=== PATIENT | male | born 1955 | race Caucasian/White ===

== ENCOUNTER 2021-03-21 12:02 | Inpatient (IN) | payer BC, MEDICARE, SELFPAY ==
[2021-03-21] VITALS (9 sets, daily range): BP systolic 122–135; BP diastolic 73–90; PULSE 62–83; RESP 16–19; TEMP 35.7–36.9; O2SAT 97–100; BMI 21.2
--- NOTE | ~2021-03-21 | XR_ITS ---
EXAMINATION: XR chest 2V DATE: 03/27/2021 09:38 INDICATION: Cough. TECHNIQUE: Frontal and lateral views of the chest were obtained. COMPARISON: Chest 2 views 03/25/2021, chest CT 03/21/2021 FINDINGS: There is a diffuse interstitial pattern in the lungs, consistent with pulmonary edema. Ther e are small pleural effusions. No pneumothorax. The heart size is normal. IMPRESSION: 1. Mild pulmonary edema. 2. Small pleural effusions. Reviewed, dictated and finalized at location A. RSONATOR CHARACTER
--- NOTE | ~2021-03-21 | XR_ITS ---
EXAMINATION: XR chest 1V portable DATE: 03/23/2021 10:25 INDICATION: Shortness of breath. TECHNIQUE: A single frontal view of the chest was obtained on 2 radiographs. COMPARISON: Chest 2 views 03/21/2021, chest CT 03/21/2021 FINDINGS: There are interstitial opacities and airspace opacities involving all lung zones bilaterall y. No pleural effusion or pneumothorax. The heart size is normal. IMPRESSION: 1. Diffuse lung disease, worsened from 03/21/2021, consistent with moderate pulmonary edema. Reviewed, dictated and finalized at location A. H CUTTER IMPRESSION: 1. Diffuse lung disease, worsened from 03/21/2021, consistent with moderate pul monary edema.
--- NOTE | ~2021-03-21 | XR_ITS ---
XR chest 2V DATE: 03/25/2021 06:36 INDICATION: Hemoptysis for 2 days. Shortness of breath. TECHNIQUE: PA and lateral views COMPARISON: 03/23/2021 portable AP chest FINDINGS: Heart size appears normal. There is extensive pulmonary interstitial infiltrate throughout the lungs. There are bilateral Narciso B-lines. The fissures are prominent. The findings are consisten t with diffuse pulmonary interstitial edema in addition to subpleural edema. There are small pleural effusions. Bibasilar infiltrate or atelectasis. There is aortic arch calcification. Barium contrast material is noted in the splenic flexure of the colon. Glenohumeral osteoarthritis is noted bilaterally. IMPRESSION: Pulmonary interstitial and subpleural edema, mildly improved since 03/23/2021 Reviewed, dictated and finalized at location A. INE LAY OUT WORKER
--- NOTE | ~2021-03-21 | XR_ITS ---
EXAMINATION: XR chest 2V DATE: 03/21/2021 12:40 INDICATION: Epigastric abdominal pain. Shortness of breath. TECHNIQUE: Frontal and lateral views of the chest were obtained. COMPARISON: Chest 2 views 05/12/2016 FINDINGS: There is a diffuse interstitial pattern, consistent with mild pulmonary edema. No pleural e ffusion or pneumothorax. The heart size is normal. IMPRESSION: 1. Mild pulmonary edema. Reviewed, dictated and finalized at location A. EGNATOR IMPRESSION: 1. Mild pulmonary edema.
--- NOTE | ~2021-03-21 | XR_ITS ---
EXAMINATION: XR esophogram water soluble DATE: 03/21/2021 14:37 BEE TENDER INDICATION: Difficulty swallowing. History of tonsillar cancer. TECHNIQUE: Water-soluble contrast was administered orally. Fluoroscopic images of the esophagus were obtained in various projections. The hypopharynx was also examined. Thereafter, overhead images of th e thoracic esophagrus were performed. Fluroscopy time 0.6 minutesDap 10.5 FINDINGS: The esophagus is normal in caliber, without mucosal lesions or strictures. There is normal esophageal peristalsis. There is a small hiatal hernia. Gastroesophageal reflux is identified. IMPRESSION: 1. Small sliding hiatal hernia with gastroesophageal reflux. No strictures or obstruction to flow of contrast into the stomach. Reviewed, dictated and finalized at location A. TENDER
--- NOTE | ~2021-03-21 | CT_ITS ---
EXAMINATION: CT soft tiss nk chst ab pel w DATE: 03/21/2021 14:21 INDICATION: Dysphagia. Right chest pain. Nausea and vomiting. TECHNIQUE: Computed tomography (CT) of the neck, chest, abdomen, and pelvis was performed with 100 mL Omnipaque 350 intravenous contrast. Automated exposure control and iterative reconstruction techniqu e were employed. The dose-length product was 922.53 mGy-cm. COMPARISON: None FINDINGS: NECK CT: There is fat stranding in the neck, consistent with changes of radiation therapy. There are no pathol ogically enlarged lymph nodes. There is mild plaque in the proximal internal carotid arteries with 0% stenosis relative to normal artery lumen diameters. There is no abscess. The epiglottis is normal. T here is moderate cervical spondylosis. CHEST CT: There is widespread smooth septal thickening in the lungs with groundglass opacities, likely pulmonar y edema. No pleural effusion. The heart size is normal. There are coronary artery calcifications. No pericardial effusion. There is severe thoracic spondylosis. ABDOMEN/PELVIS CT: There is hepatosplenomegaly. The spleen measures 14.4 cm. The gallbladder, pancreas, and right adrena l gland are normal. There is a 4.0 cm mass of left adrenal gland with surrounding fat stranding. Ther e are cysts in the kidneys measuring up to 2.7 cm on the left. There is diverticulosis of the colon w ithout evidence of diverticulitis. There are no dilated loops of bowel. The appendix is not visualize d. There is a small sliding hiatal hernia. There are no pathologically enlarged lymph nodes. There is no free intraperitoneal fluid. There is calcified atherosclerosis of the aorta and many of the other arteries. There is moderate stenosis of the renal arteries, celiac axis, superior mesenteric artery. There is severe stenosis of left internal iliac artery and moderate stenosis of right internal iliac artery. There is severe lumbar spondylosis. IMPRESSION: 1. Diffuse lung disease, likely mild pulmonary edema. 2. Hepatosplenomegaly. 3. 4.0 cm mass of left adrenal gland with surrounding fat stranding, most likely recent adrenal hemor rhage. 4. Arterial occlusive disease. Reviewed, dictated and finalized at location A. ATTENDANT IMPRESSION: 1. Diffuse lung disease, likely mild pulmonary edema. 2. Hepatosplenomegaly. 3. 4.0 cm mass of left adrenal gland with surrounding fat stranding, most likel y recent adrenal hemorrhage. 4. Arterial occlusive disease.
--- NOTE | 2021-03-21 12:17 | ECG_ITS ---
Measurements Intervals [place] Rate: 74 P: 60 [place]: 154 QRS: 2 QRSD: 100 T: 85 QT: 388 QTc: 431 Interpretive Statements SINUS RHYTHM POSSIBLE LEFT ATRIAL ENLARGEMENT CANNOT RULE OUT SEPTAL INFARCT, AGE INDETERMINATE BORDERLINE ST-T WAVE ABNORMALITY- ANTEROLAT/HIGH LAT LEADS BASELINE ARTIFACT- I, III, AVR, AVL, AVF, V4-V5 ABNORMAL ECG Electronically Signed On 03-21-2021 15:26:33 ECONOMIC ADVISER by Brian Ibarra D.O.
[2021-03-21 12:35] LABS: Hemoglobin 14.3 g/dL (14.0-18.0); Immature Platelet Fraction Pct 24.9 % (0.9-11.2); Mean Corpuscular HGB Conc 32.5 g/dl (32-36); Mean Corpuscular Hemoglobin 34.1 pg (26-34); Platelet Count Result 61 k/mm3 (150-375); Red Blood Count 4.19 M/mm3 (4.6-6.20); Red Cell Distribution Width 22.8 % (11.5-14.5)
[2021-03-21 12:47] LABS: Partial Thromboplastin Time 23.9 SECONDS (22.3-36.8); Prothrombin Time 12.7 Seconds (11.1-14.7)
[2021-03-21 12:48] LABS: Anion Gap 10 mmol/L (8-16); Blood Urea Nitrogen 19 mg/dL (9-20); Calcium 8.9 mg/dL (8.4-10.2); Carbon Dioxide 22 mmol/L (22-30); Chloride 103 mmol/L (98-107); Estimated CRCL calculation 62 ml/min; Estimated Glomerular Filt Rate > 60; Glucose 100 mg/dL (65-110); Potassium 4.7 mmol/L (3.4-5.0); Sodium 135 mmol/L (137-145)
[2021-03-21 12:53] LABS: White Blood Count 119.4 K/mm3 (4.5-10.0)
[2021-03-21 13:15] LABS: Troponin I 0.721 ng/mL (0.000-0.034)
[2021-03-21 13:19] LABS: Band Neutrophils Percent 5 % (0-6); Eosinophils Absolute Manual 1.19 K/mm3 (0.02-0.5); Eosinophils Percent Manual 1 % (0-4); Lymphocytes Absolute Manual 4.77 K/mm3 (1.1-4.5); Metamyelocytes Percent 4 %; Monocytes Absolute Manual 7.16 K/mm3 (0.1-0.90); Monocytes Percent Manual 6 % (3-9); Myelocytes Percent 2 %; Neutrophils Absolute Manual 95.52 K/mm3 (1.3-6.7); Neutrophils Percent Manual 75 % (46-73); Platelet Estimate Decreased (Adequate); Promyelocytes Percent 3 %; Total Cells Counted 100
[2021-03-21 13:20] LABS: Large Platelets Present; Polychromasia 2+ (NORMAL)
--- NOTE | 2021-03-21 13:23 | ED.GENADULT ---
HPI - General Adult General Chief complaint: Skin/Abscess/Foreign Body Stated complaint: GI, esophageal tightness Time Seen by Provider: 03/21/21 13:22 Source: patient Mode of arrival: ambulatory Limitations: no limitations History of Present Illness HPI narrative: Patient is 65 years old white male presented to the ED with difficulty swallowing started 4 days ago, and gradually getting worse. Patient reports severe central chest pain radiating to right upper extremity immediately after eating anything. Patient feels the food does not go down. Patient vomited once today. Last meal was last night. Patient was seen at [facility] 2 days ago for the above symptoms, cardiac work-up plus chest x-ray plus CT scan of the chest showed no acute abnormalities and patient was discharged. Patient went see his family physician today who referred him to the emergency room for further evaluation history of right tonsillar cancer 2 years ago, status post radiation therapy and chemotherapy. Patient reports history of bone marrow disorder since 38 years old. Patient reports burping make the symptoms gets better Related Data Home Medications Medication Instructions Recorded Confirmed danazol 200 mg capsule 200 mg PO BID 05/23/20 12/11/20 ferrous sulfate 325 mg (65 mg 325 mg PO TID 05/23/20 12/11/20 iron) tablet levothyroxine 112 mcg tablet 112 mcg PO DAILY 05/23/20 12/11/20 uyngsjsfmybq-kmvutmrh-gktjrh tablet 1 tablet PO DAILY 05/23/20 12/11/20 ruxolitinib 5 mg tablet 5 mg PO BID 05/23/20 12/11/20 aspirin 81 mg tablet,delayed 81 mg PO DAILY 10/17/20 12/11/20 release ticagrelor 60 mg tablet 60 mg PO Q12H 10/17/20 12/11/20 atorvastatin 40 mg tablet 40 mg PO DAILY 10/25/20 12/11/20 Allergies Allergy/AdvReac Type Severity Reaction Status Date / Time bee venom protein (honey bee) Allergy Unknown Unknown Verified 03/21/21 11:25 poison lashae extract Allergy Unknown rash Verified 03/21/21 11:25 Review of Systems Review of Systems: CONSTITUTIONAL: Denies fever, chills, or sweats. EYES: Denies visual changes, redness, or discharge. ENT: Denies rhinorrhea, congestion, sore throat, or otalgia. CARDIOVASCULAR: Denies chest pain, palpitations, or edema. RESPIRATORY: Denies cough or dyspnea. GASTROINTESTINAL: Denies abdominal pain, nausea, vomiting, or diarrhea. GENITOURINARY: Denies dysuria or hematuria. SKIN: Denies rash or itching. MUSCULOSKELETAL: Denies back pain, joint pain, or myalgia. NEUROLOGIC: Denies headache, numbness, or weakness. PSYCHIATRIC: Denies anxiety or depression. 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 with myeloid hyperplasia History of bone marrow biopsy (~04/25/13) hypercellular bone marrow with maturing trilinage hematopoiesis and myeloid and megakaryocytic hyperplasia History of Mohs surgery for squamous cell carcinoma of skin (~12/01/18) right denominational History of tonsillectomy (~1958) Post PTCA Family History Family History Mother Patient's mother is Family history of arthritis Father Family history of irritable bowel syndrome Social History Social History Alcohol intake: current Exam Narrative: General appearance: Well-developed, malnourished Skin: Normal color Head: Normocephalic, nontraumatic Eyes: Clear conjunctiva ENT: Oropharynx normal, ears normal, nose normal Neck: Supple, nontender Chest and respiratory: Airway patent, no respiratory distress, no accessor
--- NOTE | 2021-03-21 13:30 | PC.NURSE ---
Dr. Cobb ordered to not give asprin
--- NOTE | 2021-03-21 13:55 | PC.NURSE ---
Awaiting CT scan pt updated
[2021-03-21 14:00] LABS: Alanine Aminotransferase 32 U/L (4-50); Albumin Level 3.9 g/dL (3.5-5.1); Alkaline Phosphatase 84 U/L (38-126); Aspartate Amino Transferase 35 U/L (17-59); Bilirubin,Total 0.6 mg/dL (0.2-1.3)
--- NOTE | 2021-03-21 16:00 | PC.NURSE ---
Patient resting quietly
[2021-03-21 16:07] LABS: Troponin I 0.843 ng/mL (0.000-0.034)
[2021-03-21] MEDS: METOPROLOL TARTRATE 25 MG TABLET PO (16:31)
[2021-03-21] MEDS: ASPIRIN 81 MG CHEWABLE TABLET 324 MG PO (16:31)
--- NOTE | 2021-03-21 17:22 | PC.NURSE ---
Attempting to call report no answer after being on hold
--- NOTE | 2021-03-21 18:37 | PC.NURSE ---
Gave report to Vivian TORRES no further questions or concerns
--- NOTE | 2021-03-21 18:58 | ADMGEN ---
This patient, Mikael Hernandez, was admitted to IMU Room 205-02 at 1856 on 03/21/2021. Patient/family oriented to hospital policies and general routines including ID bracelet, bed and alarms, visiting hours, pain management, procedures, bathroom and other care routines, personal items, smoking policy, room service/diet, and visiting hours. Information on how to activate the Rapid Response Team has been discussed. Patient/Family are encouraged to report perceived risks to care and to ask questions if they do not understand what they are told or what they should do.
--- NOTE | 2021-03-21 20:00 | PM.IMHP ---
H&P: HPI History of Present Illness Date/Time: 03/21/21 20:00 Chief Complaint: Chest pain. 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 Patient presented today to the emergency room after he was advised by his primary care physician where he was visiting in due to retrosternal chest pain with radiation to the right shoulder after eating meals has not been able to eat anything in in the last couple of days pain is alleviated when the patient changes positions like leaning forward and burping, when he lays flat the pain gets exacerbated he has bouts of dry cough with it and shortness of breath, no sputum production, no palpitation, no dizziness no lightheadedness no syncope or near syncope, has sensation on something stuck in the middle of his chest after he swallows, patient had some nausea and vomiting the day before where he vomited foot particles undigested from the day before with his medications that he took in the morning triggering this episode, patient denies any fevers, rigors or chills. Preliminary workup was significant for esophagogram esophagus is normal in caliber, without mucosal lesions or strictures,there is normal esophageal peristalsis,there is a small hiatal hernia,gastroesophageal reflux is identified, WBC was significant for a leukocyte count of 119,000, a CT of neck chest abdominal pelvis was significant for hepatosplenomegaly. Patient has been admitted for further evaluation, management ,treatment and assessment. Review of Systems Review of Systems: Retrosternal chest pain with meals, nausea ,vomiting ,dysphagia. Constitutional: Constitutional: Denies chills, Denies fatigue, Denies fever(s), Denies malaise, Denies poor appetite and Denies weakness Eyes: Eyes: Denies change in vision ENT: Reports dysphagia, Denies vertigo, Denies dizziness, Denies nasal congestion, Denies nasal discharge, Denies nasal obstruction and Denies odynophagia Cardiovascular: Cardiovascular: Reports chest pain, Denies chest pain with activity, Denies rapid heart rate, Denies irregular heart rhythm, Denies claudication, Denies lightheadedness, Denies radiating jaw, neck or arm pain, Denies palpitations, Denies dyspnea, Denies dyspnea on exertion and Denies orthopnea Respiratory: Respiratory: Reports cough and Reports dyspnea Comments: After meals Gastrointestinal: Gastrointestinal: Reports abdominal pain, Reports belching, Denies melena, Denies hematochezia, Denies coffee ground emesis, Reports dyspepsia, Reports heartburn, Reports nausea and Reports vomiting Genitourinary: Genitourinary: Reports no additional male genitourinary complaints and Reports as per HPI Musculoskeletal: Musculoskeletal: Reports no additional musculoskeletal complaints and Reports as per HPI Integumentary/Breasts: Skin/Breast: Denies rash and Denies skin ulcer Comments: Squamous cell carcinoma and basal cell carcinoma Neurologic: Denies vertigo, Denies dizziness, Denies focal weakness and Denies Sensory deficit (Neuro) Endocrine: Endocrine: Reports no additional endocrine complaints and Reports as per HPI Hematologic/Lymphatic: Hematologic/Lymphatic: Reports no additional hematologic/lymphatic complaints and Reports as per HPI Allergic/Immunologic: Allergic/Immunologic: Reports no additional allergic/immunologic complaints and Reports as per HPI PMF Past Medical History Medical History (Updated 03/22/21 @ 00:45 by Margaret Renner MD) Atrial fibrillation 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
[2021-03-21 20:58] LABS: Troponin I 0.975 ng/mL (0.000-0.034)
[2021-03-21] MEDS: AMIODARONE HCL 200 MG TABLET PO (22:45)
[2021-03-21] MEDS: TICAGRELOR 60 MG TABLET PO (22:45)
--- NOTE | 2021-03-21 23:05 | PC.NURSE ---
This patient, Mikael Hernandez, was admitted to IMU Room 205-02. Patient/family oriented to hospital policies and general routines including ID bracelet, bed and alarms, visiting hours, pain management, procedures, bathroom and other care routines, personal items, smoking policy, room service/diet, and visiting hours. Patient/Family are encouraged to report perceived risks to care and to ask questions if they do not understand what they are told or what they should do.
[2021-03-22] VITALS (12 sets, daily range): BP systolic 105–121; BP diastolic 68–80; PULSE 67–85; RESP 16–22; TEMP 35.2–37.1; O2SAT 97–100
[2021-03-22] MEDS: HYDROmorphone HCL INJ (*CRX) 1 MG/ML SYR IV PUSH ×4 (04:28→21:33)
[2021-03-22] MEDS: PANTOPRAZOLE SODIUM IV 40 MG VIAL IV PUSH ×3 (04:29→20:36)
[2021-03-22 05:36] LABS: Hematocrit 42.3 % (42.0-52.0); Hemoglobin 14.1 g/dL (14.0-18.0); Immature Platelet Fraction Pct 23.6 % (0.9-11.2); Mean Corpuscular HGB Conc 33.3 g/dl (32-36); Mean Corpuscular Hemoglobin 34.9 pg (26-34); Mean Corpuscular Volume 104.7 fl (80-100); Platelet Count Result 54 k/mm3 (150-375); Red Blood Count 4.04 M/mm3 (4.6-6.20); Red Cell Distribution Width 22.2 % (11.5-14.5)
[2021-03-22 05:45] LABS: Alanine Aminotransferase 31 U/L (4-50); Albumin Level 3.6 g/dL (3.5-5.1); Alkaline Phosphatase 73 U/L (38-126); Anion Gap 9 mmol/L (8-16); Aspartate Amino Transferase 32 U/L (17-59); Bilirubin,Total 0.6 mg/dL (0.2-1.3); Blood Urea Nitrogen 20 mg/dL (9-20); Calcium 8.5 mg/dL (8.4-10.2); Carbon Dioxide 20 mmol/L (22-30); Chloride 104 mmol/L (98-107); Estimated CRCL calculation 59 ml/min; Estimated Glomerular Filt Rate > 60; Glucose 83 mg/dL (65-110); Potassium 4.6 mmol/L (3.4-5.0); Sodium 133 mmol/L (137-145)
--- NOTE | 2021-03-22 06:00 | ECG_ITS ---
Measurements Intervals [place] Rate: 69 P: 36 [place]: 161 QRS: -17 QRSD: 106 T: 87 QT: 412 QTc: 442 Interpretive Statements SINUS RHYTHM POSSIBLE LEFT ATRIAL ENLARGEMENT CANNOT RULE OUT SEPTAL INFARCT, AGE INDETERMINATE CONSIDER INFERIOR INFARCT, AGE INDETERMINATE ST-T WAVE ABNORMALITY IN HIGH LATERAL LEADS- CONSIDER ISCHEMIA ABNORMAL ECG Electronically Signed On 03-22-2021 8:03:03 REFINISHER by Brian Ibarra D.O.
[2021-03-22] MEDS: LEVOTHYROXINE SODIUM 75 MCG TABLET PO (06:37)
[2021-03-22] MEDS: BELLADONNA ALK/PHENOB ELIX 10 ML, MAG HYDROX/ALUMINUM HYD/SIMETH 30 ML, LIDOCAINE HCL 2... PO ×2 (06:37→12:42)
[2021-03-22] MEDS: LEVOTHYROXINE SODIUM 100 MCG TABLET PO (06:37)
[2021-03-22 06:40] LABS: White Blood Count 116.7 K/mm3 (4.5-10.0)
[2021-03-22 07:42] LABS: Band Neutrophils Percent 8 % (0-6); Blastocytes 1 %; Metamyelocytes Percent 7 %; Monocytes Absolute Manual 1.16 K/mm3 (0.1-0.90); Monocytes Percent Manual 1 % (3-9); Myelocytes Percent 5 %; Neutrophils Absolute Manual 75.85 K/mm3 (1.3-6.7); Neutrophils Percent Manual 57 % (46-73); Platelet Estimate Decreased (Adequate); Promyelocytes Percent 3 %; Total Cells Counted 100
[2021-03-22 07:43] LABS: Atypical Lymphocytes Present
--- NOTE | 2021-03-22 10:10 | PM.CNCAR ---
Assessment and Plan Additional Plan 65-year-old man who has a history of atrial fibrillation coronary artery disease with previous percutaneous revascularization in July in August of this year at another hospital over in [place]. He is currently not reporting any cardiac symptoms to the best of my ability to discern. He was admitted to the hospital from his PCP office because of difficulty with pain related to swallowing both liquid and solid foods as well as belching and a lot of gas. Troponin levels were checked and they are slightly elevated but flat. I do not see any other evidence that he is having an acute coronary problem at this time. His history is obviously very complex with a history of cancer surgery for squamous cell carcinoma in his neck followed by radiation and myelodysplastic syndrome of some sort with current hematologic picture showing thrombocytopenia and elevated white count. He this time is not reporting any cardiac symptoms and I do not plan on initiating an ischemia workup at this time his medical regimen is appropriate for this including his aspirin, Brilinta and amiodarone. These should be continued as far as I can tell he should follow-up with his established biological science technician fish in [place] following discharge from [place]. I would suggest his work appears to be centered around his swallowing difficulties and esophagus. He reports a remote history of what sounds like an esophageal stricture a number of years ago that was dilated. Given the fact that he is had cancer surgery and radiation therapy in the last year and a half I believe these are more likely to be the source of his current difficulties. If you have questions regarding this opinion please let me know Mikael Santos MD [facility] History of Present Illness History of Present Illness Consult date/time: 03/22/21 10:10 Reason For Visit: N STEMI/dysphagia/dysplastic syndrome Narrative: This is a 65-year-old man I am seeing this morning at the request of the hospitalist because of elevated troponin level. Patient has an extremely complex medical and cardiac history which I had to review quite a few records as part of today's consultation. The patient apparently was seen by his primary care physician who works here at [facility] and was directed to the hospital for admission yesterday because of symptoms with difficulty swallowing. He states that his principal complaint at this time consists of pain in his chest, neck, right shoulder and right arm that iced triggered by attempted to swallow almost anything. This is triggered by liquids as well as solid foods. There have been times where he has been regurgitating recently consumed food as well. He has a lot of difficulty with belching and passing gas as well. He does not have any symptoms of exertional chest pain palpitations orthopnea PND or accumulating edema. Apparently this patient has a history of coronary artery disease as well as atrial fibrillation. These diagnoses were made in July of this year when he was admitted at [facility] in [place]. He was seen by the Cardiology group over there and treated with amiodarone restoring sinus rhythm. He states he underwent catheterization and was found to have coronary disease and underwent coronary stent procedure in July and another lesion was stented in August of this year. He has done well since then with respect to his heart disease he is be being maintained on a regimen of amiodarone, low-dose aspirin, ticagrelor and atorvastatin. Following admission to the hospital with these complaints troponin levels were sampled they are out of range triggering this consultation to for me to see him today. Three samples are between 0.7 and 0.9. The patient states that the current symptoms do not bear any resemblance to his myocardial ischemic symptoms nor his atrial fibrillation from about 8 months ago. His electrocardiogram does not demonstrate any changes of acute myocardial
[2021-03-22] MEDS: OPTI-GEN TAB 1 TABLET PO (10:20)
[2021-03-22] MEDS: AMIODARONE HCL 200 MG TABLET PO (10:21)
[2021-03-22] MEDS: FERROUS SULFATE 324 MG TABLET PO ×2 (10:21→17:55)
[2021-03-22] MEDS: TICAGRELOR 60 MG TABLET PO ×2 (10:22→17:55)
[2021-03-22] MEDS: ASPIRIN 81 MG ENTERIC TABLET PO (10:23)
[2021-03-22] MEDS: ATORVASTATIN 40 MG TABLET PO (10:23)
[2021-03-22] MEDS: MORPHINE SULFATE (*CRX) 2 MG/ML INJ IV PUSH (10:24)
--- NOTE | 2021-03-22 11:08 | PHAR ---
HOME MEDICATIONS VERIFIED BY PHARMACY: RUXOLITINIB 5MG TABLETS 1 TABLET PO TWICE DAILY [id number] DANAZOL 200MG CAPSULE 1 CAPSULE PO TWICE DAILY [id number]
--- NOTE | 2021-03-22 12:00 | PM.IMPN ---
Progress Note: A&P Assessment and Plan (1) Dysphagia: Qualifiers: Dysphagia type: unspecified Qualified Code(s): R13.10 - Dysphagia, unspecified Code(s): R13.10 - Dysphagia, unspecified Status: Acute Assessment and Plan: Esophagram did not show any acute abnormalities but did showed reflux CT of neck chest and abdomen with no acute abnormalities Patient tolerated meals SUSPECT STRICTURE OR ULCERATION SECONDARY TO REFLUX AND OR PRIOR RADIATION FROM 2 YEARS AGO GI CONSULTATION COMPLETED MARCH 22 EGD PLANNED FOR MARCH 23 CONTINUE ANALGESICS AND PPI IN THE MEANTIME (2) MDS (myelodysplastic syndrome): Code(s): D46.9 - Myelodysplastic syndrome, unspecified Status: Acute Assessment and Plan: Patient follows up in outpatient setting with Hematology-Oncology Continue to monitor (3) Squamous cell carcinoma of oropharynx: Code(s): C10.9 - Malignant neoplasm of oropharynx, unspecified Status: Acute Assessment and Plan: Status post chemo radiation Follows up in outpatient setting with Hematology-Oncology (4) Squamous cell skin cancer, face: Code(s): C44.320 - Squamous cell carcinoma of skin of unspecified parts of face Status: Acute Assessment and Plan: Status post surgical removal Mohs surgery Follow-up in outpatient setting (5) Atrial fibrillation: Qualifiers: Atrial fibrillation type: paroxysmal Qualified Code(s): I48.0 - Paroxysmal atrial fibrillation Code(s): I48.91 - Unspecified atrial fibrillation Status: Inactive Assessment and Plan: Rate controlled Continue amiodarone (6) CAD (coronary artery disease): Qualifiers: Coronary Disease-Associated Artery/Lesion type: [place] artery [place] vs. transplanted heart: [place] heart Associated angina: without angina Qualified Code(s): I25.10 - Atherosclerotic heart disease of [place] coronary artery without angina pectoris Code(s): I25.10 - Atherosclerotic heart disease of [place] coronary artery without angina pectoris Status: Acute Assessment and Plan: CURRENT SYMPTOMS CLINICALLY ARE NOT DUE TO ANGINA (7) Elevated troponin I level: Code(s): R77.8 - Other specified abnormalities of plasma proteins Status: Acute Assessment and Plan: SIGNIFICANT ELEVATED BUT FLAT NO EVIDENCE FOR ACUTE CORONARY SYNDROME OR TYPE 2 INFARCT MARCH 22 DISCUSSED WITH CARDIOLOGY Subjective Date/time seen: 03/22/21 12:00 Interval history: Admitted March 21 with dysphagia and odynophagia. Troponins were elevated but flat. History of coronary disease status post stenting earlier this year. History of atrial fibrillation. History of essential thrombocytosis and myelodysplasia with recent elevated white count over the last 2 months. 03/22 visit: Pain while supine. Pain with swallowing. Radiates to right shoulder. Moderate to severe. Deep aching. No exertional chest pain. No shortness of breath. Upper respiratory congestion with cough and clear mucus. No edema. No abdominal pain. No abnormal bleeding. Review of Systems Review of Systems: All systems reviewed & are unremarkable except as noted in HPI and below Exam Narrative: HEENT: PERRL, sclerae nonicteric, pharyngeal mucosa pink and intact NECK: No JVD CHEST: Clear to auscultation. Normal effort. HEART: NL S1/S2, regular, no murmur ABDOMEN: BS+, soft, MILD EPIGASTRIC TENDERNESS, no mass, no bruits EXTREMITIES: No cyanosis, edema, or clubbing NEUROLOGIC: CN intact and symmetric to inspection. MUSCULOSKELETAL: Tone and strength symmetric. PSYCH: Alert. Oriented to person, place, and time. Objective Data Vital Signs Vital Signs: Vital Signs - 24 hr 03/21/21 12:12 03/21/21 13:24 03/21/21 16:31 Temperature 96.2 F L Pulse Rate 83 81 72 Respiratory Rate 16 16 Blood Pressure 135/81 132/90 Pulse Oximetry 100 100 03/21/21 18:52 03/21/21 19:00 03/10
--- NOTE | 2021-03-22 12:03 | WPDGICN ---
Assessment and Plan Assessment and plan (1) Dysphagia: Qualifiers: Dysphagia type: unspecified Qualified Code(s): R13.10 - Dysphagia, unspecified Code(s): R13.10 - Dysphagia, unspecified Status: Acute Assessment and Plan: he is able to eat food but recently with nausea and vomiting, also will cause pain in right sided h/o neck surgery with previous radiation will need to assess with egd to check for stricture, radiation damage, esophagitis, etc had elevated troponins but flat, already seeing by cardiology and recommending also GI evaluation (2) Nausea and vomiting in adult: Code(s): R11.2 - Nausea with vomiting, unspecified Status: Acute Assessment and Plan: will assess with egd, main problem with pain in right shoulder (3) MDS (myelodysplastic syndrome): Code(s): D46.9 - Myelodysplastic syndrome, unspecified Status: Acute Assessment and Plan: chronic elevated wbc and low platelets seeing hematology (4) Elevated troponin I level: Code(s): R77.8 - Other specified abnormalities of plasma proteins Status: Acute Assessment and Plan: noted, by cardiology (5) Thrombocytopenia: Code(s): D69.6 - Thrombocytopenia, unspecified Status: Acute (6) CAD (coronary artery disease): Qualifiers: Coronary Disease-Associated Artery/Lesion type: [place] artery [place] vs. 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 His PCP advised to come to the emergency room because last few days with retrosternal chest pain with radiation to the right shoulder after eating meals, also has not been able to eat much. Pain better after burping, also briefly improved after GI cocktail. No recent EGD and he is not taking ppi. He had esophagogram that was reviewed- esophagus is normal in caliber, without mucosal lesions or strictures,there is normal esophageal peristalsis,there is a small hiatal hernia,gastroesophageal reflux is identified, WBC was significant for a leukocyte count of 119,000, a CT of neck chest abdominal pelvis was significant for hepatosplenomegaly. Also had elevated troponins but flat and cardiology evaluated patient, no need of further ischemic work up. Review of Systems Constitutional: Constitutional: Denies chills Eyes: Eyes: Denies blurry vision ENT: Reports Normal hearing present Cardiovascular: Cardiovascular: Reports chest pain Respiratory: Respiratory: Denies cough Gastrointestinal: Gastrointestinal: Reports nausea and Reports vomiting Genitourinary: Genitourinary: Denies dysuria Musculoskeletal: Musculoskeletal: Denies arthralgias Integumentary/Breasts: Skin/Breast: Denies dry skin Neurologic: Denies headache(s) Psychiatric: Psychiatric: Denies behavioral changes [facility] Past Medical History Medical History (Updated 03/22/21 @ 12:08 by Gino Boss MD) Atrial fibrillation 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
[2021-03-22] MEDS: ONDANSETRON INJ 4 MG/2 ML VIAL IV PUSH (12:25)
--- NOTE | 2021-03-22 13:09 | WPDANESEPP ---
Anes - Eval Pre Procedure Procedure: EGD Date/Time: 03/22/21 13:09 Surgeon: tyrese Preop Diagnosis: dysphagia Pre Op Diagnosis: N STEMI/dysphagia/dysplastic syndrome Patient Data Age: 65 Gender: M Height: 1.73 m Weight: 63.3 kg Last Vital Signs Temp 36.4 C L 03/22/21 12:00 Pulse 73 03/22/21 12:00 Resp 18 03/22/21 12:00 BP 119/71 03/22/21 12:00 Pulse Ox 99 03/22/21 12:00 Allergies Allergy/AdvReac Type Severity Reaction Status Date / Time bee venom protein (honey bee) Allergy Unknown Unknown Verified 03/21/21 20:40 poison lashae extract Allergy Unknown rash Verified 03/21/21 20:40 Home Medications Medication Instructions Recorded Confirmed Type danazol 200 mg capsule 200 mg PO BID 05/23/20 03/21/21 History ferrous sulfate 325 mg (65 mg 325 mg PO TID 05/23/20 03/21/21 History iron) tablet evbtchybytsk-zhtalkcb-qcafmy tablet 1 tablet PO DAILY 05/23/20 03/21/21 History ruxolitinib 5 mg tablet 5 mg PO BID 05/23/20 03/21/21 History aspirin 81 mg tablet,delayed 81 mg PO DAILY 10/17/20 03/21/21 History release ticagrelor 60 mg tablet 60 mg PO BID 10/17/20 03/21/21 History atorvastatin 40 mg tablet 40 mg PO DAILY 10/25/20 03/21/21 History nitroglycerin 0.4 mg sublingual 0.4 mg SUBLINGUAL Q5M PRN #30 10/25/20 03/21/21 Rx tablet tablet amiodarone 200 mg PO DAILY 03/21/21 03/21/21 History levothyroxine 175 mcg PO DAILY 03/21/21 03/21/21 History Laboratory Tests 03/21/21 03/21/21 03/21/21 12:25 12:25 12:25 WBC RBC Hgb Hct MCV MCH MCHC RDW Plt Count MPV Immature Gran % (Auto) Neut % (Auto) Lymph % (Auto) Rogers % (Auto) Eos % (Auto) Baso % (Auto) Lymph # (Auto) Rogers # (Auto) Eos # (Auto) Baso # (Auto) Abs Immat Gran (auto) Absolute Neuts (auto) Absolute Nucleated RBC Total Counted 100 Neutrophils % (Manual) 75 % H % (46-73) Band Neutrophils % 5 % % (0-6) Lymphocytes % (Manual) 4.0 % L % (18-44) Monocytes % (Manual) 6 % % (3-9) Eosinophils % (Manual) 1 % % (0-4) Metamyelocytes % 4 % % Myelocytes % 2 % % Promyelocytes % (Man) 3 % % Nucleated RBC % Abs Neuts (Manual) 95.52 K/mm3 H K/mm3 (1.3-6.7) Abs Lymphs (Manual) 4.77 K/mm3 H K/mm3 (1.1-4.5) Abs Monocytes (Manual) 7.16 K/mm3 H K/mm3 (0.1-0.90) Absolute Eos (Manual) 1.19 K/mm3 H K/mm3 (0.02-0.5) Atypical Lymphocytes Blast Cells Platelet Estimate Decreased (Adequate) Large Platelets Present % Immature Plt Fraction Polychromasia 2+ (NORMAL) Sodium Potassium Chloride Carbon Dioxide Anion Gap BUN Creatinine Estim Creat Clear Calc Estimated GFR Glucose Calcium Total Bilirubin 0.6 mg/dL mg/dL (0.2-1.3) Direct Bilirubin 0.0 mg/dL mg/dL (0-0.3) AST 35 U/L U/L (17-59) ALT 32 U/L U/L (4-50) Alkaline Phosphatase 84 U/L U/L (38-126) Troponin I 0.721 ng/mL H* ng/mL (0.000-0.034) Total Protein 7.0 g/dL g/dL (6.3-8.2) Albumin 3.9 g/dL g/dL (3.5-5.1) 03/21/21 03/21/21 03/22/21 15:25 20:00 04:38 WBC 116.7 K/mm3 H* K/mm3 (4.5-10.0) RBC 4.04 M/mm3 L M/mm3 (4.6-6.20) Hgb 14.1 g/dL g/dL (14.0-18.0) Hct 42.3 % % (42.0-52.0) MCV 104.7 fl H fl (80-100) MCH 34.9 pg H pg (26-34) MCHC 33.3 g/dl g/dl (32-36) RDW 22.2 % H % (11.
--- NOTE | 2021-03-22 21:56 | PC.NURSE ---
This pt transferred per wheelchair to room 317 at 2150. Verified home meds and belongings with pt.
--- NOTE | 2021-03-22 22:30 | PC.NURSE ---
This patient, Mikael Hernandez, was received from [facility] ([facility] on 03/22/21 at 2130. Report taken from Yahaira TORRES. Patient/family oriented to unit policies and routines
--- NOTE | 2021-03-22 23:09 | PC.NURSE ---
CARBONATION TESTER attempted to take Mr. Hernandez's initial vital signs and could not get an accurate temp reading. He was 95.3F Temporally and 94.0F orally. When reported to me I decided to check rectally prior to calling doctor and rectally he was 98.5F. He is extremely anxious and pacing the room. Saying he is in 10/10 pain in his right shoulder. Already requesting more pain medications after receiving them at 2100 in [facility].. he stated he felt they shorted him on medication...
[2021-03-23] VITALS (12 sets, daily range): BP systolic 92–114; BP diastolic 62–75; PULSE 78–95; RESP 18–28; TEMP 35.6–36.2; O2SAT 90–100
[2021-03-23] MEDS: LORazepam INJ (*CRX) 2 MG/ML VIAL 1 MG IV PUSH (00:37)
[2021-03-23] MEDS: HYDROmorphone HCL INJ (*CRX) 1 MG/ML SYR IV PUSH ×5 (00:38→23:20)
[2021-03-23] MEDS: FAMOTIDINE 20 MG/2 ML VIAL IV PUSH (00:38)
[2021-03-23 06:34] LABS: Anion Gap 11 mmol/L (8-16); Blood Urea Nitrogen 25 mg/dL (9-20); Calcium 8.6 mg/dL (8.4-10.2); Carbon Dioxide 21 mmol/L (22-30); Chloride 105 mmol/L (98-107); Estimated CRCL calculation 54 ml/min; Estimated Glomerular Filt Rate > 60; Glucose 103 mg/dL (65-110); Potassium 4.5 mmol/L (3.4-5.0); Sodium 137 mmol/L (137-145)
[2021-03-23 07:05] LABS: Hematocrit 43.6 % (42.0-52.0); Hemoglobin 14.2 g/dL (14.0-18.0); Immature Platelet Fraction Pct 30.4 % (0.9-11.2); Mean Corpuscular HGB Conc 32.6 g/dl (32-36); Mean Corpuscular Volume 107.4 fl (80-100); Mean Platelet Volume 12.3 fl (7.4-10.4); Platelet Count Result 75 k/mm3 (150-375); Red Blood Count 4.06 M/mm3 (4.6-6.20); Red Cell Distribution Width 22.6 % (11.5-14.5)
[2021-03-23 07:52] LABS: White Blood Count 157.5 K/mm3 (4.5-10.0)
[2021-03-23 07:55] LABS: Atypical Lymphocytes Present; Band Neutrophils Percent 2 % (0-6); Basophils Absolute Manual 22.05 K/mm3 (0.0-0.1); Basophils Percent Manual 14 % (0-1); Giant Platelets Present; Metamyelocytes Percent 20 %; Monocytes Absolute Manual 3.15 K/mm3 (0.1-0.90); Monocytes Percent Manual 2 % (3-9); Myelocytes Percent 4 %; Neutrophils Percent Manual 50 % (46-73); Platelet Estimate Decreased (Adequate); Total Cells Counted 100
[2021-03-23] MEDS: LACTATED RINGERS 1,000 ML 150 ML IV CONT (08:00)
[2021-03-23] MEDS: OPTI-GEN TAB 1 TABLET PO (09:52)
[2021-03-23] MEDS: AMIODARONE HCL 200 MG TABLET PO (09:52)
[2021-03-23] MEDS: ASPIRIN 81 MG ENTERIC TABLET PO (09:52)
[2021-03-23] MEDS: ATORVASTATIN 40 MG TABLET PO (09:52)
[2021-03-23] MEDS: PANTOPRAZOLE SODIUM IV 40 MG VIAL IV PUSH ×2 (09:53→19:57)
[2021-03-23] MEDS: TICAGRELOR 60 MG TABLET PO ×2 (09:53→16:19)
[2021-03-23] MEDS: FERROUS SULFATE 324 MG TABLET PO ×3 (09:53→16:19)
--- NOTE | 2021-03-23 11:30 | PM.IMPN ---
Progress Note: A&P Assessment and Plan (1) Dysphagia: Qualifiers: Dysphagia type: unspecified Qualified Code(s): R13.10 - Dysphagia, unspecified Code(s): R13.10 - Dysphagia, unspecified Status: Acute Assessment and Plan: Esophagram did not show any acute abnormalities but did showed reflux CT of neck chest and abdomen with no acute abnormalities Patient tolerated meals 03/23 EGD WITH SEVERE GASTRITIS and NL ESOPHAGUS Continue BID pantoprazole, sucralfate added 05/23 (2) MDS (myelodysplastic syndrome): Code(s): D46.9 - Myelodysplastic syndrome, unspecified Status: Acute Assessment and Plan: WBC up to 157.5K Worrisome for transition to leukemia (in spite of recent negative bone marrow) Due to cardiac issues, will NOT aggressively hydrate at this time Check uric acid and consider starting allopurinol Consult heme/onc (3) Squamous cell carcinoma of oropharynx: Code(s): C10.9 - Malignant neoplasm of oropharynx, unspecified Status: Acute Assessment and Plan: Status post chemo radiation Follows up in outpatient setting with Hematology-Oncology (Dr. Dominguez with [facility] in [place]) (4) Squamous cell skin cancer, face: Code(s): C44.320 - Squamous cell carcinoma of skin of unspecified parts of face Status: Acute Assessment and Plan: Status post surgical removal Mohs surgery Follow-up in outpatient setting (5) Atrial fibrillation: Qualifiers: Atrial fibrillation type: paroxysmal Qualified Code(s): I48.0 - Paroxysmal atrial fibrillation Code(s): I48.91 - Unspecified atrial fibrillation Status: Inactive Assessment and Plan: Rate controlled Continue amiodarone (6) CAD (coronary artery disease): Qualifiers: Coronary Disease-Associated Artery/Lesion type: [place] artery [place] vs. transplanted heart: [place] heart Associated angina: without angina Qualified Code(s): I25.10 - Atherosclerotic heart disease of [place] coronary artery without angina pectoris Code(s): I25.10 - Atherosclerotic heart disease of [place] coronary artery without angina pectoris Status: Acute Assessment and Plan: CURRENT SYMPTOMS CLINICALLY ARE NOT DUE TO ANGINA (7) Elevated troponin I level: Code(s): R77.8 - Other specified abnormalities of plasma proteins Status: Acute Assessment and Plan: SIGNIFICANT ELEVATED BUT FLAT NO EVIDENCE FOR ACUTE CORONARY SYNDROME OR TYPE 2 INFARCT MARCH 22 DISCUSSED WITH CARDIOLOGY AND DISCONTINUED TELEMETRY/[facility] Subjective Date/time seen: 03/23/21 11:30 Interval history: Admitted March 21 with dysphagia and odynophagia. Troponins were elevated but flat. History of coronary disease status post stenting earlier this year. History of atrial fibrillation. History of essential thrombocytosis and myelodysplasia with recent elevated white count over the last 2 months. 03/23 visit: Drowsy after EGD. Nausea vomiting and pain after eating last night. No problems so far today but has not eaten yet. No exertional chest pain. No shortness of breath. Mild upper respiratory congestion with cough and clear mucus. No edema. No abdominal pain. No abnormal bleeding. Review of Systems Review of Systems: All systems reviewed & are unremarkable except as noted in HPI and below Exam Narrative: HEENT: PERRL, sclerae nonicteric, pharyngeal mucosa pink and intact NECK: No JVD CHEST: Clear to auscultation. Normal effort. HEART: NL S1/S2, regular, LLSB systolic murmur radiating toward axilla ABDOMEN: BS+, soft, MILD EPIGASTRIC TENDERNESS, no mass, no bruits EXTREMITIES: No cyanosis, edema, or clubbing NEUROLOGIC: CN intact and symmetric to inspection. MUSCULOSKELETAL: Tone and strength symmetric. PSYCH: Alert. Oriented to person, place, and time. Objective Data Vital Signs Vital Signs: Vital Signs - 24 hr 03/22/21 12:00 03/22/21 16:00 03/22/21 19:46 Temperat
[2021-03-23 11:55] LABS: Uric Acid 7.2 mg/dL (3.5-8.5)
[2021-03-23] MEDS: ONDANSETRON INJ 4 MG/2 ML VIAL IV PUSH ×2 (15:24→23:20)
[2021-03-23] MEDS: SUCRALFATE SUSP 100 MG/ML 10 ML UDC 1000 MG PO ×2 (16:17→19:57)
[2021-03-23] MEDS: PROMETHAZINE HCL 25 MG/ML AMPUL 12.5 MG IV PUSH (19:49)
[2021-03-24 01:57] VITALS: BP 105/70; PULSE 93; RESP 18; TEMP 36.4; O2SAT 91
[2021-03-24] MEDS: LEVOTHYROXINE SODIUM 100 MCG TABLET PO (05:49)
[2021-03-24] MEDS: SUCRALFATE SUSP 100 MG/ML 10 ML UDC 1000 MG PO ×4 (05:49→21:20)
[2021-03-24] MEDS: ONDANSETRON INJ 4 MG/2 ML VIAL IV PUSH ×3 (05:49→19:22)
[2021-03-24] MEDS: HYDROmorphone HCL INJ (*CRX) 1 MG/ML SYR IV PUSH ×4 (05:49→19:22)
[2021-03-24] MEDS: LEVOTHYROXINE SODIUM 75 MCG TABLET PO (05:50)
[2021-03-24 06:53] LABS: Hematocrit 42.8 % (42.0-52.0); Immature Platelet Fraction Pct 28.6 % (0.9-11.2); Mean Corpuscular HGB Conc 32.7 g/dl (32-36); Mean Corpuscular Hemoglobin 35.3 pg (26-34); Mean Corpuscular Volume 107.8 fl (80-100); Platelet Count Result 76 k/mm3 (150-375); Red Blood Count 3.97 M/mm3 (4.6-6.20); Red Cell Distribution Width 22.5 % (11.5-14.5)
[2021-03-24 07:04] LABS: Anion Gap 12 mmol/L (8-16); Blood Urea Nitrogen 31 mg/dL (9-20); Calcium 8.6 mg/dL (8.4-10.2); Carbon Dioxide 18 mmol/L (22-30); Chloride 104 mmol/L (98-107); Estimated CRCL calculation 43 ml/min; Estimated Glomerular Filt Rate 51; Glucose 111 mg/dL (65-110); Potassium 5.2 mmol/L (3.4-5.0); Sodium 134 mmol/L (137-145)
[2021-03-24 08:14] LABS: White Blood Count 147.9 K/mm3 (4.5-10.0)
[2021-03-24 08:36] LABS: Band Neutrophils Percent 9 % (0-6); Blastocytes 1 %; Lymphocytes Absolute Manual 2.95 K/mm3 (1.1-4.5); Metamyelocytes Percent 11 %; Monocytes Absolute Manual 2.95 K/mm3 (0.1-0.90); Monocytes Percent Manual 2 % (3-9); Myelocytes Percent 13 %; Neutrophils Absolute Manual 103.53 K/mm3 (1.3-6.7); Neutrophils Percent Manual 61 % (46-73); Nucleated Red Blood Cells 2 %; Promyelocytes Percent 1 %; Total Cells Counted 100
[2021-03-24 08:37] LABS: Polychromasia 1+ (NORMAL)
[2021-03-24 08:38] LABS: Anisocytosis 1+ (NORMAL); Macrocytosis 1+ (NORMAL)
[2021-03-24 08:39] LABS: Poikilocytosis 1+ (NORMAL)
[2021-03-24 08:42] LABS: Platelet Estimate Decreased (Adequate)
[2021-03-24] MEDS: SODIUM POLYSTYRENE SULFONONATE 15 GM/60 ML BTL PO (09:19)
[2021-03-24] MEDS: PANTOPRAZOLE SODIUM IV 40 MG VIAL IV PUSH ×2 (09:20→21:23)
[2021-03-24 09:23] VITALS: PULSE 92
[2021-03-24] MEDS: FERROUS SULFATE 324 MG TABLET PO ×3 (09:23→16:35)
[2021-03-24] MEDS: ATORVASTATIN 40 MG TABLET PO (09:23)
[2021-03-24] MEDS: allopurinoL 300 MG TABLET PO (09:23)
[2021-03-24] MEDS: ASPIRIN 81 MG ENTERIC TABLET PO (09:23)
[2021-03-24] MEDS: OPTI-GEN TAB 1 TABLET PO (09:23)
[2021-03-24] MEDS: TICAGRELOR 60 MG TABLET PO ×2 (09:23→16:34)
[2021-03-24] MEDS: AMIODARONE HCL 200 MG TABLET PO (09:23)
[2021-03-24 11:36] VITALS: BP 117/78; PULSE 92; RESP 16; TEMP 36; O2SAT 91
--- NOTE | 2021-03-24 12:48 | PDONCCN ---
HPI - Date of Consult Date/Time: 03/24/21 12:48 Requesting Physician: Molina Argueta MD Primary Care Provider: Mikael Suarez MD - Consult Narrative Reason for consult: Essential thrombocythemia and leukocytosis Narrative: Mikael Hernandez is a 65 year old male with history of essential thrombocythemia diagnosed in 1993 has been managed by Dr. Guerrero and Dr. Valdes at [facility]. Patient was also diagnosed with head and neck cancer status post chemoradiation therapy in 2007. He has been remission from his head and neck cancer. Now he came into the hospital with chest pain radiating to the right side of his shoulder. Patient was also having burping complain. He denies any nausea vomiting. Patient had EGD done on March 23 that showed hiatal hernia and gastritis. He was taking hydroxyurea 500 mg 3 tablets a day at home. He just had recent bone marrow biopsy done on March 04 due to rising WBC count that showed hypercellular marrow with reticulin fibrosis. Cytogenetics were pending. Labs in the hospital showed WBC count of 147,000 with normal hemoglobin of [address] [place] [address] scan showed diffuse lung disease likely pulmonary edema along with hepatosplenomegaly with spleen size of 14.4 cm and 4 cm mass of the left adrenal gland most likely recent adrenal hemorrhage. 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 Hypothyroidism (acquired) Myelodysplasia with hypogammaglobulinemia Nausea and vomiting in adult Squamous cell carcinoma of oropharynx Surgical History: Surgical History (Last Reviewed 03/22/21 @ 13:12 by Milady Baez CRNA) History of arthroplasty of left knee Onset Date: ~1988 History of bone marrow biopsy Onset Date: ~03/2012 hypercellular marrow with myeloid hyperplasia History of bone marrow biopsy Onset Date: ~04/25/13 hypercellular bone marrow with maturing trilinage hematopoiesis and myeloid and megakaryocytic hyperplasia History of Mohs surgery for squamous cell carcinoma of skin Onset Date: ~12/01/18 right holiness History of tonsillectomy Onset Date: ~1958 Post PTCA Family History: Family History (Last Updated 03/21/21 @ 20:55 by Yahaira Dial RN) Mother Family history of arthritis Chronic obstructive pulmonary disease Father Family history of irritable bowel syndrome Lung cancer Hypertension - Social History Social History: Social History (Last Reviewed 03/22/21 @ 13:12 by Milady Baez CRNA) Alcohol Use: Alcohol intake: former Substance Use: Substance use: never Others: Spiritual care concerns: No Smoking Status: Smoking status: Never smoker Second hand tobacco smoke exposure: Yes Second hand tobacco smoke exposure comment: father Meds Home Medications Medication Instructions Recorded Confirmed Type danazol 200 mg capsule 200 mg PO BID 05/23/20 03/21/21 History ferrous sulfate 325 mg (65 mg 325 mg PO TID 05/23/20 03/21/21 History iron) tablet jee[place]sc-kxyfnrpi-hqeszu tablet 1 tablet PO DAILY 05/23/20 03/21/21 History ruxolitinib 5 mg tablet 5 mg PO BID 05/23/20 03/21/21 History aspirin 81 mg tablet,delayed 81 mg PO DAILY 10/17/20 03/21/21 History release ticagrelor 60 mg tablet 60 mg PO BID 10/17/20 03/21/21 History atorvastatin 40 mg tablet 40 mg PO DAILY 10/25/20 03/21/21 History nitroglycerin 0.4 mg sublingual 0.4 mg SUBLINGUAL Q5M PRN #30 10/25/20 03/21/21 Rx tablet tablet amiodarone 20
--- NOTE | 2021-03-24 14:39 | PM.IMPN ---
Progress Note: A&P Assessment and Plan (1) Dysphagia: Qualifiers: Dysphagia type: unspecified Qualified Code(s): R13.10 - Dysphagia, unspecified Code(s): R13.10 - Dysphagia, unspecified Status: Acute Assessment and Plan: Esophagram did not show any acute abnormalities but did showed reflux CT of neck chest and abdomen with no acute abnormalities Patient tolerated meals 03/23 EGD WITH SEVERE GASTRITIS and NL ESOPHAGUS Continue BID pantoprazole, sucralfate added 03/23 (2) MDS (myelodysplastic syndrome): Code(s): D46.9 - Myelodysplastic syndrome, unspecified Status: Acute Assessment and Plan: WBC up to 157.5K-->147.9 today Worrisome for transition to leukemia (in spite of recent negative bone marrow) Uric acid wnl Heme/onc consulted recommendations appreciated Currently on hydroxyurea 500 mg changed to bid F/u with Dr. Guerrero outpatient (3) Squamous cell carcinoma of oropharynx: Code(s): C10.9 - Malignant neoplasm of oropharynx, unspecified Status: Acute Assessment and Plan: Status post chemo radiation Follows up in outpatient setting with Hematology-Oncology (Dr. Dominguez with [facility] in [place]) (4) Squamous cell skin cancer, face: Code(s): C44.320 - Squamous cell carcinoma of skin of unspecified parts of face Status: Acute Assessment and Plan: Status post surgical removal Mohs surgery Follow-up in outpatient setting (5) Atrial fibrillation: Qualifiers: Atrial fibrillation type: paroxysmal Qualified Code(s): I48.0 - Paroxysmal atrial fibrillation Code(s): I48.91 - Unspecified atrial fibrillation Status: Inactive Assessment and Plan: Rate controlled Continue amiodarone Cardiology consulted Tele monitoring (6) CAD (coronary artery disease): Qualifiers: Coronary Disease-Associated Artery/Lesion type: [place] artery [place] vs. transplanted heart: [place] heart Associated angina: without angina Qualified Code(s): I25.10 - Atherosclerotic heart disease of [place] coronary artery without angina pectoris Code(s): I25.10 - Atherosclerotic heart disease of [place] coronary artery without angina pectoris Status: Acute Assessment and Plan: CURRENT SYMPTOMS CLINICALLY ARE NOT DUE TO ANGINA (7) Elevated troponin I level: Code(s): R77.8 - Other specified abnormalities of plasma proteins Status: Acute Assessment and Plan: SIGNIFICANT ELEVATED BUT FLAT NO EVIDENCE FOR ACUTE CORONARY SYNDROME OR TYPE 2 INFARCT MARCH 22 DISCUSSED WITH CARDIOLOGY AND DISCONTINUED TELEMETRY/[facility] Subjective Date/time seen: 03/24/21 14:39 Interval history: Admitted March 21 with dysphagia and odynophagia. Troponins were elevated but flat. History of coronary disease status post stenting earlier this year. History of atrial fibrillation. History of essential thrombocytosis and myelodysplasia with recent elevated white count over the last 2 months. 03/23 visit: Drowsy after EGD. Nausea vomiting and pain after eating last night. No problems so far today but has not eaten yet. No exertional chest pain. No shortness of breath. Mild upper respiratory congestion with cough and clear mucus. No edema. No abdominal pain. No abnormal bleeding. 03/24: pt seen this a.m; labs, vs, diagnostic reports and consult notes reviewed; continues with indigestion Review of Systems Review of Systems: All systems reviewed & are unremarkable except as noted in HPI and below Exam Const: General: no acute distress, alert and awake Orientation/consciousness: patient oriented x3 HENMT: Head: normocephalic and atraumatic Ears: hearing grossly normal bilaterally and external ears normal Face and sinus: face symmetric Mouth: Yes Normal oral and palatal mucosa present Eyes: EOM: EOMs intact bilaterally Neck: Neck: full ROM, trachea midline and no JVD Chest: Chest palpation & inspection: nor
--- NOTE | 2021-03-24 16:00 | WPDGIPROGNO ---
Progress Note: A&P Assessment and Plan (1) Gastritis: Code(s): K29.70 - Gastritis, unspecified, without bleeding Status: Acute Assessment and Plan: egd showed gastritis but no signs of upper gib on ppi and also added carafate, on liquid diet his main complaint is coughing up blood and still chest discomfort in right sided CXR yesterday showed pulmonary edema- will repeat in am (2) Coughing blood: Code(s): R04.2 - Hemoptysis Status: Acute Assessment and Plan: consider consult pulmonary if worsened noted thick oral secretions yesterday with EGD (h/o oropharynx cancer) (3) Nausea and vomiting in adult: Code(s): R11.2 - Nausea with vomiting, unspecified Status: Acute Assessment and Plan: on liquid diet, advance as tolerated (4) MDS (myelodysplastic syndrome): Code(s): D46.9 - Myelodysplastic syndrome, unspecified Status: Acute Assessment and Plan: oncology on board (5) Pulmonary edema: Code(s): J81.1 - Chronic pulmonary edema Status: Acute (6) Squamous cell carcinoma of oropharynx: Code(s): C10.9 - Malignant neoplasm of oropharynx, unspecified Status: Acute Subjective Date/time seen: 03/24/21 16:00 Interval history: egd showed severe gastritis but no signs of bleeding, no ulcers. Also had thick oral secretions. Still coughing up small amount of sputum with blood and not feeling much better, pain in right sided chest. Also abdominal cramping but tolerating some liquid diet. Review of Systems Review of Systems: All systems reviewed & are unremarkable except as noted in HPI and below Exam Const: General: comfortable, no acute distress and ill appearing chronically Nutritional Appearance: thin HENMT: Other: dry mouth Eyes: Sclera: sclerae normal Neck: Neck: no JVD Resp: Effort & Inspection: normal respiratory effort Auscultation: diminished lung sounds (bases) Cardio: Rate: regular rate Rhythm: regular rhythm GI: Inspection: non-distended GI Palp: Yes Soft to palpation and No Guarding due to palpation present (GI) Auscultation: normal bowel sounds Skin: General skin exam: normal color Neuro: Cognition (Neuro): normal cognition Extrem: General: normal to inspection Psych: Mental Status: mental status grossly normal Objective Data Vital Signs Vital Signs: Vital Signs - 24 hr 03/23/21 16:25 03/23/21 20:09 03/24/21 01:57 Temperature 97.5 F L Pulse Rate 93 Respiratory Rate 18 Blood Pressure 105/70 Pulse Oximetry 90 95 91 03/24/21 09:23 03/24/21 11:36 Temperature 96.8 F L Pulse Rate 92 92 Respiratory Rate 16 Blood Pressure 117/78 Pulse Oximetry 91 Intake/Output Intake/Output: Intake & Output 03/21/21 03/22/21 03/23/21 03/24/21 23:59 23:59 23:59 23:59 Intake Total 222 1130 650 900 Output Total 300 Balance 222 830 650 900 Meds/Results Medications: Active Medications Generic Name Dose Route Start Last Admin Trade Name Freq PRN Reason Stop Dose Admin Al Hydrox/Mg Hydrox/Simethicone 30 ml 03/22/21 09:27 Mag Hydrox/Al Hydrox/Simeth 30 Ml Udc PO Q6H PRN Indigestion Allopurinol 300 mg 03/24/21 08:00 03/24/21 09:23 Allopurinol 300 Mg Tablet PO 300 mg DAILY@0800 PIERRE Administration Amiodarone HCl 200 mg 03/22/21 09:00 03/24/21 09:23 Amiodarone Hcl 200 Mg Tablet PO 200 mg DAILY PIERRE Administration Aspirin 81 mg 03/22/21 09:00 03/24/21 09:23 Aspirin 81 Mg Enteric Tablet PO 81 mg DAILY PIERRE Administration Atorvastatin Calcium 40 mg 03/22/21 09:00 03/24/21 09:23 Atorvastatin 40 Mg Tablet PO 40 mg DAILY PIERRE Administration Dicyclomine HCl 10 mg 03/24/21 15:59 Dicyclomine Hcl 10 Mg Capsule PO Q8H PRN Abdominal Cramping Ferrous Sulfate 324 mg 03/22/21 08:00 03/24/21 11:22 Ferrous Sulfate 324 Mg Tablet PO 324 mg TIDWM PIERRE Administration Home Med 1 each 03/22/21 09:00 03/24/21
[2021-03-24] MEDS: HYDROXYUREA (*CHEMO) 500 MG CAPSULE PO (16:35)
[2021-03-24] MEDS: DICYCLOMINE HCL 10 MG CAPSULE PO (16:49)
[2021-03-24 19:00] VITALS: BP 107/70; PULSE 95; RESP 18; TEMP 36.9; O2SAT 96
[2021-03-24 20:00] VITALS: O2SAT 96
[2021-03-24 23:53] VITALS: O2SAT 94
[2021-03-25 03:00] VITALS: BP 105/67; PULSE 83; RESP 18; TEMP 36.8; O2SAT 94
[2021-03-25] MEDS: ONDANSETRON INJ 4 MG/2 ML VIAL IV PUSH (05:01)
[2021-03-25] MEDS: HYDROmorphone HCL INJ (*CRX) 1 MG/ML SYR IV PUSH ×4 (05:01→20:54)
[2021-03-25] MEDS: SUCRALFATE SUSP 100 MG/ML 10 ML UDC 1000 MG PO ×4 (06:26→20:54)
[2021-03-25] MEDS: LEVOTHYROXINE SODIUM 100 MCG TABLET PO (06:26)
[2021-03-25] MEDS: LEVOTHYROXINE SODIUM 75 MCG TABLET PO (06:27)
[2021-03-25 08:30] VITALS: PULSE 86; RESP 18; O2SAT 92
[2021-03-25 08:40] VITALS: PULSE 86
[2021-03-25] MEDS: ATORVASTATIN 40 MG TABLET PO (08:40)
[2021-03-25] MEDS: HYDROXYUREA (*CHEMO) 500 MG CAPSULE PO ×2 (08:40→17:24)
[2021-03-25] MEDS: TICAGRELOR 60 MG TABLET PO ×2 (08:40→17:24)
[2021-03-25] MEDS: FERROUS SULFATE 324 MG TABLET PO ×3 (08:40→17:24)
[2021-03-25] MEDS: allopurinoL 300 MG TABLET PO (08:40)
[2021-03-25] MEDS: OPTI-GEN TAB 1 TABLET PO (08:40)
[2021-03-25] MEDS: AMIODARONE HCL 200 MG TABLET PO (08:40)
[2021-03-25] MEDS: ASPIRIN 81 MG ENTERIC TABLET PO (08:40)
[2021-03-25] MEDS: PANTOPRAZOLE SODIUM IV 40 MG VIAL IV PUSH ×2 (08:41→20:53)
--- NOTE | 2021-03-25 10:25 | PM.IMPN ---
Progress Note: A&P Assessment and Plan (1) Dysphagia: Qualifiers: Dysphagia type: unspecified Qualified Code(s): R13.10 - Dysphagia, unspecified Code(s): R13.10 - Dysphagia, unspecified Status: Acute Assessment and Plan: Esophagram did not show any acute abnormalities but did showed reflux CT of neck chest and abdomen with no acute abnormalities Patient tolerated meals 03/23 EGD WITH SEVERE GASTRITIS and NL ESOPHAGUS Continue BID pantoprazole, sucralfate added 03/23 (2) MDS (myelodysplastic syndrome): Code(s): D46.9 - Myelodysplastic syndrome, unspecified Status: Acute Assessment and Plan: WBC up to 157.5K-->147.9 today Worrisome for transition to leukemia (in spite of recent negative bone marrow) Uric acid wnl Heme/onc consulted recommendations appreciated Currently on hydroxyurea 500 mg changed to bid F/u with Dr. Guerrero outpatient (3) Squamous cell carcinoma of oropharynx: Code(s): C10.9 - Malignant neoplasm of oropharynx, unspecified Status: Acute Assessment and Plan: Status post chemo radiation Follows up in outpatient setting with Hematology-Oncology (Dr. Dominguez with [facility] in [place]) (4) Squamous cell skin cancer, face: Code(s): C44.320 - Squamous cell carcinoma of skin of unspecified parts of face Status: Acute Assessment and Plan: Status post surgical removal Mohs surgery Follow-up in outpatient setting (5) Atrial fibrillation: Qualifiers: Atrial fibrillation type: paroxysmal Qualified Code(s): I48.0 - Paroxysmal atrial fibrillation Code(s): I48.91 - Unspecified atrial fibrillation Status: Inactive Assessment and Plan: Rate controlled Continue amiodarone Cardiology consulted Tele monitoring (6) CAD (coronary artery disease): Qualifiers: Coronary Disease-Associated Artery/Lesion type: [place] artery [place] vs. transplanted heart: [place] heart Associated angina: without angina Qualified Code(s): I25.10 - Atherosclerotic heart disease of [place] coronary artery without angina pectoris Code(s): I25.10 - Atherosclerotic heart disease of [place] coronary artery without angina pectoris Status: Acute Assessment and Plan: CURRENT SYMPTOMS CLINICALLY ARE NOT DUE TO ANGINA (7) Elevated troponin I level: Code(s): R77.8 - Other specified abnormalities of plasma proteins Status: Acute Assessment and Plan: SIGNIFICANT ELEVATED BUT FLAT NO EVIDENCE FOR ACUTE CORONARY SYNDROME OR TYPE 2 INFARCT MARCH 22 DISCUSSED WITH CARDIOLOGY AND DISCONTINUED TELEMETRY/IMU (8) Coughing blood: Code(s): R04.2 - Hemoptysis Status: Acute Assessment and Plan: Small amount, improved CXR noted above with some improvemtnt Subjective Date/time seen: 03/25/21 10:25 Interval history: Admitted March 21 with dysphagia and odynophagia. Troponins were elevated but flat. History of coronary disease status post stenting earlier this year. History of atrial fibrillation. History of essential thrombocytosis and myelodysplasia with recent elevated white count over the last 2 months. 03/23 visit: Drowsy after EGD. Nausea vomiting and pain after eating last night. No problems so far today but has not eaten yet. No exertional chest pain. No shortness of breath. Mild upper respiratory congestion with cough and clear mucus. No edema. No abdominal pain. No abnormal bleeding. 03/24: pt seen this a.m; labs, vs, diagnostic reports and consult notes reviewed; continues with indigestion 03/15: pt seen this a.m with at the bedside; indigestion improving Review of Systems Review of Systems: All systems reviewed & are unremarkable except as noted in HPI and below Exam Const: General: no acute distress, alert and awake Orientation/consciousness: patient oriented x3 HENMT: Head: normocephalic and atraumatic Ears: hearing grossly normal bilater
--- NOTE | 2021-03-25 10:51 | PC.NURSE ---
On 03/25/21, the student, [ Rohini Hunter], provided care and completed [facility] documentation on this patient. I have reviewed the student's documentation and agree with the findings.
[2021-03-25 11:00] VITALS: BP 106/68; PULSE 88; RESP 16; TEMP 36.2; O2SAT 92
--- NOTE | 2021-03-25 13:20 | WPDGIPROGNO ---
Progress Note: A&P Assessment and Plan (1) Gastritis: Code(s): K29.70 - Gastritis, unspecified, without bleeding Status: Acute Assessment and Plan: egd showed gastritis but no signs of upper gib on ppi and also carafate advance diet as tolerating, feeling better today without more vomiting cough also improving along with chest discomfort in right sided (2) Coughing blood: Code(s): R04.2 - Hemoptysis Status: Acute Assessment and Plan: CXR today showed improvement of pulmonary edema which could be cause of some of symptoms (3) Nausea and vomiting in adult: Code(s): R11.2 - Nausea with vomiting, unspecified Status: Acute Assessment and Plan: advance diet as tolerated (4) MDS (myelodysplastic syndrome): Code(s): D46.9 - Myelodysplastic syndrome, unspecified Status: Acute Assessment and Plan: oncology on board (5) Pulmonary edema: Code(s): J81.1 - Chronic pulmonary edema Status: Acute Assessment and Plan: CXR better and symptomatically improving (6) Squamous cell carcinoma of oropharynx: Code(s): C10.9 - Malignant neoplasm of oropharynx, unspecified Status: Acute Subjective Date/time seen: 03/25/21 13:20 Interval history: he is feeling better today, no more vomiting and tolerating diet. Cough with bloody sputum also has improved Review of Systems Review of Systems: All systems reviewed & are unremarkable except as noted in HPI and below Exam Const: General: comfortable, no acute distress and ill appearing chronically Nutritional Appearance: thin HENMT: Other: dry mouth Eyes: Sclera: sclerae normal Neck: Neck: no JVD Resp: Effort & Inspection: normal respiratory effort Cardio: Rate: regular rate Rhythm: regular rhythm GI: Inspection: non-distended GI Palp: Yes Soft to palpation and No Guarding due to palpation present (GI) Auscultation: normal bowel sounds Skin: General skin exam: normal color Neuro: Cognition (Neuro): normal cognition Extrem: General: normal to inspection Psych: Mental Status: mental status grossly normal Objective Data Vital Signs Vital Signs: Vital Signs - 24 hr 03/24/21 19:00 03/24/21 20:00 03/24/21 23:53 Temperature 98.5 F Pulse Rate 95 Respiratory Rate 18 Blood Pressure 107/70 Pulse Oximetry 96 96 94 03/25/21 03:00 03/25/21 08:30 03/25/21 08:40 Temperature 98.2 F Pulse Rate 83 86 86 Respiratory Rate 18 18 Blood Pressure 105/67 Pulse Oximetry 94 92 03/25/21 11:00 Temperature 97.2 F L Pulse Rate 88 Respiratory Rate 16 Blood Pressure 106/68 Pulse Oximetry 92 Intake/Output Intake/Output: Intake & Output 03/22/21 03/23/21 03/24/21 03/25/21 23:59 23:59 23:59 23:59 Intake Total 0551 213 6725 750 Output Total 300 Balance 024 636 3603 750 Meds/Results Medications: Active Medications Generic Name Dose Route Start Last Admin Trade Name Freq PRN Reason Stop Dose Admin Al Hydrox/Mg Hydrox/Simethicone 30 ml 03/22/21 09:27 Mag Hydrox/Al Hydrox/Simeth 30 Ml Udc PO Q6H PRN Indigestion Allopurinol 300 mg 03/24/21 08:00 03/25/21 08:40 Allopurinol 300 Mg Tablet PO 300 mg DAILY@0800 PIERRE Administration Amiodarone HCl 200 mg 03/22/21 09:00 03/25/21 08:40 Amiodarone Hcl 200 Mg Tablet PO 200 mg DAILY PIERRE Administration Aspirin 81 mg 03/22/21 09:00 03/25/21 08:40 Aspirin 81 Mg Enteric Tablet PO 81 mg DAILY PIERRE Administration Atorvastatin Calcium 40 mg 03/22/21 09:00 03/25/21 08:40 Atorvastatin 40 Mg Tablet PO 40 mg DAILY PIERRE Administration Dicyclomine HCl 10 mg 03/24/21 15:59 03/24/21 16:49 Dicyclomine Hcl 10 Mg Capsule PO 10 mg Q8H PRN Administration Abdominal Cramping Ferrous Sulfate 324 mg 03/22/21 08:00 03/25/21 11:49 Ferrous Sulfate 324 Mg Tablet PO 324 mg TIDWM PIERRE Administration Home Med 1 each 03/22/21 09:00 03/25/21 08:4
[2021-03-25] MEDS: MAG HYDROX/AL HYDROX/SIMETH 30 ML UDC PO (21:02)
[2021-03-25 22:30] VITALS: BP 101/66; PULSE 91; RESP 14; TEMP 36.1; O2SAT 93
[2021-03-25 23:35] VITALS: O2SAT 91
[2021-03-26] MEDS: HYDROmorphone HCL INJ (*CRX) 1 MG/ML SYR IV PUSH ×3 (02:30→17:51)
[2021-03-26] MEDS: LEVOTHYROXINE SODIUM 75 MCG TABLET PO (06:06)
[2021-03-26] MEDS: LEVOTHYROXINE SODIUM 100 MCG TABLET PO (06:06)
[2021-03-26] MEDS: SUCRALFATE SUSP 100 MG/ML 10 ML UDC 1000 MG PO ×4 (06:06→20:26)
[2021-03-26 06:28] LABS: Hematocrit 36.9 % (42.0-52.0); Immature Platelet Fraction Pct 25.3 % (0.9-11.2); Mean Corpuscular HGB Conc 32.5 g/dl (32-36); Mean Corpuscular Hemoglobin 34.6 pg (26-34); Mean Corpuscular Volume 106.3 fl (80-100); Platelet Count Result 53 k/mm3 (150-375); Red Blood Count 3.47 M/mm3 (4.6-6.20); Red Cell Distribution Width 21.6 % (11.5-14.5)
[2021-03-26 06:29] VITALS: BP 102/71; PULSE 80; RESP 18; TEMP 35.9; O2SAT 100
[2021-03-26 06:37] LABS: Anion Gap 8 mmol/L (8-16); Blood Urea Nitrogen 24 mg/dL (9-20); Calcium 8.2 mg/dL (8.4-10.2); Carbon Dioxide 25 mmol/L (22-30); Chloride 100 mmol/L (98-107); Estimated CRCL calculation 54 ml/min; Estimated Glomerular Filt Rate > 60; Glucose 90 mg/dL (65-110); Potassium 3.9 mmol/L (3.4-5.0); Sodium 133 mmol/L (137-145)
[2021-03-26 06:48] LABS: White Blood Count 109.3 K/mm3 (4.5-10.0)
--- NOTE | 2021-03-26 07:41 | PC.NURSE ---
Called Dr. Valentin on [employer], no response. Called Dr. Valentin on personal phone, no response. Both calls were made in an attempt to report critical WBC.
[2021-03-26 08:36] VITALS: PULSE 78; RESP 18; O2SAT 97
[2021-03-26] MEDS: FERROUS SULFATE 324 MG TABLET PO ×3 (09:42→16:06)
[2021-03-26] MEDS: allopurinoL 300 MG TABLET PO (09:42)
[2021-03-26 09:43] VITALS: PULSE 78
[2021-03-26] MEDS: AMIODARONE HCL 200 MG TABLET PO (09:43)
[2021-03-26] MEDS: PANTOPRAZOLE SODIUM IV 40 MG VIAL IV PUSH ×2 (09:43→20:26)
[2021-03-26] MEDS: ASPIRIN 81 MG ENTERIC TABLET PO (09:43)
[2021-03-26] MEDS: ATORVASTATIN 40 MG TABLET PO (09:43)
[2021-03-26] MEDS: OPTI-GEN TAB 1 TABLET PO (09:43)
[2021-03-26] MEDS: TICAGRELOR 60 MG TABLET PO ×2 (09:44→16:06)
[2021-03-26] MEDS: HYDROXYUREA (*CHEMO) 500 MG CAPSULE PO ×2 (10:15→16:06)
--- NOTE | 2021-03-26 10:29 | PM.IMPN ---
Progress Note: A&P Assessment and Plan (1) Dysphagia: Qualifiers: Dysphagia type: unspecified Qualified Code(s): R13.10 - Dysphagia, unspecified Code(s): R13.10 - Dysphagia, unspecified Status: Acute Assessment and Plan: Esophagram did not show any acute abnormalities but did showed reflux CT of neck chest and abdomen with no acute abnormalities Patient tolerated meals 03/23 EGD WITH SEVERE GASTRITIS and NL ESOPHAGUS Continue BID pantoprazole, sucralfate added 03/23 (2) MDS (myelodysplastic syndrome): Code(s): D46.9 - Myelodysplastic syndrome, unspecified Status: Acute Assessment and Plan: WBC up to 157.5K-->147.9 down trending Worrisome for transition to leukemia (in spite of recent negative bone marrow) Uric acid wnl Heme/onc consulted recommendations appreciated Currently on hydroxyurea 500 mg changed to bid F/u with Dr. Guerrero outpatient (3) Squamous cell carcinoma of oropharynx: Code(s): C10.9 - Malignant neoplasm of oropharynx, unspecified Status: Acute Assessment and Plan: Status post chemo radiation Follows up in outpatient setting with Hematology-Oncology (Dr. Dominguez with [facility] in [place]) (4) Squamous cell skin cancer, face: Code(s): C44.320 - Squamous cell carcinoma of skin of unspecified parts of face Status: Acute Assessment and Plan: Status post surgical removal Mohs surgery Follow-up in outpatient setting (5) Atrial fibrillation: Qualifiers: Atrial fibrillation type: paroxysmal Qualified Code(s): I48.0 - Paroxysmal atrial fibrillation Code(s): I48.91 - Unspecified atrial fibrillation Status: Inactive Assessment and Plan: Rate controlled Continue amiodarone Cardiology consulted Tele monitoring (6) CAD (coronary artery disease): Qualifiers: Coronary Disease-Associated Artery/Lesion type: [place] artery [place] vs. transplanted heart: [place] heart Associated angina: without angina Qualified Code(s): I25.10 - Atherosclerotic heart disease of [place] coronary artery without angina pectoris Code(s): I25.10 - Atherosclerotic heart disease of [place] coronary artery without angina pectoris Status: Acute Assessment and Plan: CURRENT SYMPTOMS CLINICALLY ARE NOT DUE TO ANGINA (7) Elevated troponin I level: Code(s): R77.8 - Other specified abnormalities of plasma proteins Status: Acute Assessment and Plan: SIGNIFICANT ELEVATED BUT FLAT NO EVIDENCE FOR ACUTE CORONARY SYNDROME OR TYPE 2 INFARCT MARCH 22 DISCUSSED WITH CARDIOLOGY AND DISCONTINUED TELEMETRY/IMU (8) Coughing blood: Code(s): R04.2 - Hemoptysis Status: Acute Assessment and Plan: Small amount, improved CXR noted above with some improvemtnt CT chest with respiratory bronchiolitis and pulmonary edema noted on admission Will start antibiotics ceftriaxone and azithromycin Additional Plan Diagnosis of essential thrombocythemia in 1993 Head and neck cancer status post chemoradiation therapy in 2007 with remission Recent bone marrow biopsy done in March 04, 2021 for leukocytosis showing hypercellular marrow with reticulin fibrosis pending cytogenetics no blasts Subjective Date/time seen: 03/26/21 10:29 Interval history: Admitted March 21 with dysphagia and odynophagia. Troponins were elevated but flat. History of coronary disease status post stenting earlier this year. History of atrial fibrillation. History of essential thrombocytosis and myelodysplasia with recent elevated white count over the last 2 months. 03/23 visit: Drowsy after EGD. Nausea vomiting and pain after eating last night. No problems so far today but has not eaten yet. No exertional chest pain. No shortness of breath. Mild upper respiratory congestion with cough and clear mucus. No edema. No abdominal pain. No abnormal bleeding. 03/24: pt seen this a.m; labs, vs, diagnostic reports
[2021-03-26 14:00] VITALS: BP 107/69; PULSE 93; RESP 18; TEMP 36.5; O2SAT 95
--- NOTE | 2021-03-26 14:28 | PC.NURSE ---
On 03/26/21, the student, Radha Barron, provided care and completed [facility] documentation on this patient. I have reviewed the student's documentation and agree with the findings.
--- NOTE | 2021-03-26 15:35 | WPDGIPROGNO ---
Progress Note: A&P Assessment and Plan (1) Gastritis: Code(s): K29.70 - Gastritis, unspecified, without bleeding Status: Acute Assessment and Plan: egd showed gastritis but no signs of upper gib on ppi and also carafate bx showed chronic gastritis and siderosis (patient has MDS and received hematological treatment in the past which can explain this finding) tolerating more diet will follow from afar, call if questions (2) Coughing blood: Code(s): R04.2 - Hemoptysis Status: Acute Assessment and Plan: improving, started on antibiotics by primary team (3) Nausea and vomiting in adult: Code(s): R11.2 - Nausea with vomiting, unspecified Status: Acute Assessment and Plan: advance diet as tolerated (4) MDS (myelodysplastic syndrome): Code(s): D46.9 - Myelodysplastic syndrome, unspecified Status: Acute Assessment and Plan: oncology on board (5) Squamous cell carcinoma of oropharynx: Code(s): C10.9 - Malignant neoplasm of oropharynx, unspecified Status: Acute Subjective Date/time seen: 03/26/21 15:35 Interval history: nausea better, today eat a burger. Still with cough but less bloody, slowly better. He has not been able to sleep much last few days Review of Systems Review of Systems: All systems reviewed & are unremarkable except as noted in HPI and below Exam Const: General: comfortable, no acute distress and ill appearing chronically Nutritional Appearance: thin HENMT: Other: dry mouth Eyes: Sclera: sclerae normal Neck: Neck: no JVD Resp: Auscultation: no wheezes Other: coarse breath sounds Cardio: Rate: regular rate Rhythm: regular rhythm Heart sounds: Murmur heart sound present GI: Inspection: non-distended GI Palp: Yes Soft to palpation and No Guarding due to palpation present (GI) Auscultation: normal bowel sounds Skin: General skin exam: normal color Neuro: Cognition (Neuro): normal cognition Extrem: General: normal to inspection Psych: Mental Status: mental status grossly normal Objective Data Vital Signs Vital Signs: Vital Signs - 24 hr 03/25/21 22:30 03/25/21 23:35 03/26/21 06:29 Temperature 96.9 F L 96.6 F L Pulse Rate 91 80 Respiratory Rate 14 18 Blood Pressure 101/66 102/71 Pulse Oximetry 93 91 100 11/17/21 08:36 03/26/21 09:43 03/26/21 14:00 Temperature 97.7 F Pulse Rate 78 78 93 Respiratory Rate 18 18 Blood Pressure 107/69 Pulse Oximetry 97 95 Intake/Output Intake/Output: Intake & Output 03/23/21 03/24/21 03/25/21 03/26/21 23:59 23:59 23:59 23:59 Intake Total 650 1000 1376 1140 Balance 650 1000 1376 1140 Meds/Results Medications: Active Medications Generic Name Dose Route Start Last Admin Trade Name Freq PRN Reason Stop Dose Admin Al Hydrox/Mg Hydrox/Simethicone 30 ml 03/22/21 09:27 03/25/21 21:02 Mag Hydrox/Al Hydrox/Simeth 30 Ml Udc PO 30 ml Q6H PRN Administration Indigestion Allopurinol 300 mg 03/24/21 08:00 03/26/21 09:42 Allopurinol 300 Mg Tablet PO 300 mg DAILY@0800 PIERRE Administration Amiodarone HCl 200 mg 03/22/21 09:00 03/26/21 09:43 Amiodarone Hcl 200 Mg Tablet PO 200 mg DAILY PIERRE Administration Aspirin 81 mg 03/22/21 09:00 03/26/21 09:43 Aspirin 81 Mg Enteric Tablet PO 81 mg DAILY PIERRE Administration Atorvastatin Calcium 40 mg 03/22/21 09:00 03/26/21 09:43 Atorvastatin 40 Mg Tablet PO 40 mg DAILY PIERRE Administration Dicyclomine HCl 10 mg 03/24/21 15:59 03/24/21 16:49 Dicyclomine Hcl 10 Mg Capsule PO 10 mg Q8H PRN Administration Abdominal Cramping Ferrous Sulfate 324 mg 03/22/21 08:00 03/26/21 11:58 Ferrous Sulfate 324 Mg Tablet PO 324 mg TIDWM PIERRE Administration Home Med 1 each 03/22/21 09:00 03/26/21 10:16 Danazol 200 Mg Capsule (Home Med) PO 04/21/21 08:59 1 each Q12HR PIERRE Administration Home Med 1 each 03/22/21 09:00 03/26/21 10
[2021-03-26] MEDS: DICYCLOMINE HCL 10 MG CAPSULE PO (17:53)
[2021-03-26] MEDS: ZOLPIDEM TARTRATE (*CRX) 5 MG TABLET PO (20:26)
[2021-03-26 22:00] VITALS: BP 117/74; PULSE 95; RESP 16; TEMP 36.1; O2SAT 93
[2021-03-27] MEDS: MAG HYDROX/AL HYDROX/SIMETH 30 ML UDC PO ×2 (01:52→12:46)
[2021-03-27] MEDS: HYDROmorphone HCL INJ (*CRX) 1 MG/ML SYR IV PUSH (01:52)
[2021-03-27] MEDS: LEVOTHYROXINE SODIUM 100 MCG TABLET PO (05:36)
[2021-03-27] MEDS: LEVOTHYROXINE SODIUM 75 MCG TABLET PO (05:36)
[2021-03-27] MEDS: SUCRALFATE SUSP 100 MG/ML 10 ML UDC 1000 MG PO ×2 (05:36→12:19)
[2021-03-27 06:00] VITALS: BP 112/68; PULSE 75; RESP 16; TEMP 36.6; O2SAT 94
[2021-03-27 06:54] LABS: Hematocrit 36.8 % (42.0-52.0); Hemoglobin 12.2 g/dL (14.0-18.0); Immature Platelet Fraction Pct 26.1 % (0.9-11.2); Mean Corpuscular HGB Conc 33.2 g/dl (32-36); Mean Corpuscular Hemoglobin 34.2 pg (26-34); Mean Corpuscular Volume 103.1 fl (80-100); Platelet Count Result 51 k/mm3 (150-375); Red Blood Count 3.57 M/mm3 (4.6-6.20); Red Cell Distribution Width 20.7 % (11.5-14.5)
[2021-03-27 07:05] LABS: Alanine Aminotransferase 38 U/L (4-50); Albumin Level 3.2 g/dL (3.5-5.1); Alkaline Phosphatase 94 U/L (38-126); Anion Gap 8 mmol/L (8-16); Aspartate Amino Transferase 38 U/L (17-59); Bilirubin,Total 1.2 mg/dL (0.2-1.3); Blood Urea Nitrogen 23 mg/dL (9-20); Calcium 8.3 mg/dL (8.4-10.2); Carbon Dioxide 27 mmol/L (22-30); Chloride 99 mmol/L (98-107); Estimated CRCL calculation 54 ml/min; Estimated Glomerular Filt Rate > 60; Glucose 87 mg/dL (65-110); Potassium 3.6 mmol/L (3.4-5.0); Sodium 134 mmol/L (137-145)
[2021-03-27 07:08] LABS: White Blood Count 125.5 K/mm3 (4.5-10.0)
[2021-03-27 08:36] LABS: Band Neutrophils Percent 15 % (0-6); Lymphocytes Absolute Manual 1.25 K/mm3 (1.1-4.5); Metamyelocytes Percent 10 %; Monocytes Absolute Manual 3.76 K/mm3 (0.1-0.90); Monocytes Percent Manual 3 % (3-9); Myelocytes Percent 16 %; Neutrophils Absolute Manual 87.85 K/mm3 (1.3-6.7); Neutrophils Percent Manual 55 % (46-73); Nucleated Red Blood Cells 2 %; Total Cells Counted 100
[2021-03-27 08:37] LABS: Platelet Estimate Decreased (Adequate); Polychromasia 1+ (NORMAL)
[2021-03-27 09:11] VITALS: PULSE 106
[2021-03-27] MEDS: HYDROXYUREA (*CHEMO) 500 MG CAPSULE PO (09:11)
[2021-03-27] MEDS: OPTI-GEN TAB 1 TABLET PO (09:11)
[2021-03-27] MEDS: PANTOPRAZOLE SODIUM IV 40 MG VIAL IV PUSH (09:11)
[2021-03-27] MEDS: ATORVASTATIN 40 MG TABLET PO (09:11)
[2021-03-27] MEDS: AMIODARONE HCL 200 MG TABLET PO (09:11)
[2021-03-27] MEDS: ASPIRIN 81 MG ENTERIC TABLET PO (09:11)
[2021-03-27] MEDS: allopurinoL 300 MG TABLET PO (09:11)
[2021-03-27] MEDS: FERROUS SULFATE 324 MG TABLET PO ×2 (09:11→12:40)
[2021-03-27] MEDS: TICAGRELOR 60 MG TABLET PO (09:11)
[2021-03-27 10:53] LABS: NT Pro B Type Natriuretic Pept 10100 pg/mL (5-100)
[2021-03-27 11:06] VITALS: O2SAT 95
--- NOTE | 2021-03-27 11:59 | PM.DS ---
DS: Admitting Diagnosis Discharge Date 03/27/2021 Admitting Diagnosis Chest pain DS: Discharge Diagnosis Discharge Diagnosis (1) Dysphagia: Qualifiers: Dysphagia type: unspecified Qualified Code(s): R13.10 - Dysphagia, unspecified Code(s): R13.10 - Dysphagia, unspecified Status: Acute Assessment and Plan: Esophagram did not show any acute abnormalities but did showed reflux CT of neck chest and abdomen with no acute abnormalities Patient tolerated meals 03/23 EGD WITH SEVERE GASTRITIS and NL ESOPHAGUS Continue BID pantoprazole, sucralfate added 03/23 this be continued discharge (2) MDS (myelodysplastic syndrome): Code(s): D46.9 - Myelodysplastic syndrome, unspecified Status: Acute Assessment and Plan: WBC up to 157.5K-->147.9 Worrisome for transition to leukemia however recent negative bone marrow Uric acid wnl started on allopurinol Heme/onc consulted recommendations appreciated Currently on hydroxyurea 500 mg changed to bid he normally takes it at 4 times a day F/u with Dr. Guerrero outpatient for ongoing management (3) Squamous cell carcinoma of oropharynx: Code(s): C10.9 - Malignant neoplasm of oropharynx, unspecified Status: Acute Assessment and Plan: Status post chemo radiation Follows up in outpatient setting with Hematology-Oncology (Dr. Dominguez with [facility] in [place]) (4) Squamous cell skin cancer, face: Code(s): C44.320 - Squamous cell carcinoma of skin of unspecified parts of face Status: Acute Assessment and Plan: Status post surgical removal Mohs surgery Follow-up in outpatient setting (5) Atrial fibrillation: Qualifiers: Atrial fibrillation type: paroxysmal Qualified Code(s): I48.0 - Paroxysmal atrial fibrillation Code(s): I48.91 - Unspecified atrial fibrillation Status: Inactive Assessment and Plan: Rate controlled Continue amiodarone Cardiology consulted Tele monitoring (6) CAD (coronary artery disease): Qualifiers: Associated angina: without angina Coronary Disease-Associated Artery/Lesion type: [place] artery [place] vs. transplanted heart: [place] heart Qualified Code(s): I25.10 - Atherosclerotic heart disease of [place] coronary artery without angina pectoris Code(s): I25.10 - Atherosclerotic heart disease of [place] coronary artery without angina pectoris Status: Acute Assessment and Plan: CURRENT SYMPTOMS CLINICALLY ARE NOT DUE TO ANGINA (7) Elevated troponin I level: Code(s): R77.8 - Other specified abnormalities of plasma proteins Status: Acute Assessment and Plan: SIGNIFICANT ELEVATED BUT FLAT NO EVIDENCE FOR ACUTE CORONARY SYNDROME OR TYPE 2 INFARCT MARCH 22 DISCUSSED WITH CARDIOLOGY AND DISCONTINUED TELEMETRY/IMU (8) Coughing blood: Code(s): R04.2 - Hemoptysis Status: Acute Assessment and Plan: Small amount, improved CXR noted above with some improvemtnt CT chest with respiratory bronchiolitis and pulmonary edema noted on admission Started on ceftriaxone and azithromycin which remarkably improved his symptoms with resolution of his hemoptysis. He also got a dose of Lasix for his pulmonary edema. Having leg swelling suspect this could be combination bronchiolitis finding is CT and chest x-ray Will continue with the antibiotic course and continue follow with primary care Eating require any oxygen by the time of discharge Ceftriaxone and azithromycin was switched to cefdinir and azithromycin to complete the course for bronchiolitis DS: Summary Hospital Course Hospital Course: See above Time Spent with Patient Time attestation: Total time spent providing and/or coordinating discharge services: 45 minutes Exam Narrative: HEENT: PERRL, sclerae nonicteric, pharyngeal mucosa pink and intact NECK: No JVD CHEST: Coarse breath sounds bilaterally. Normal effort. No respiratory distress HEART: NL S1/S2,
[2021-03-27] MEDS: FUROSEMIDE INJ 40 MG/4 ML VIAL IV PUSH (12:18)
[2021-03-27 14:00] VITALS: BP 107/66; PULSE 88; RESP 21; TEMP 35.9; O2SAT 98
== END 2021-03-27 15:05 | disposition home or self-care (01) | DRG 392 ==
LOC: ANHED 15:21 → ANHIMU 17:01 → ANH3MEDSUR 03-23 10:22 → ANHIMU 03-31 09:59
PROVIDERS: Internal Medicine; Internal Medicine Critical Care Medicine; Internal Medicine Gastroenterology; Nurse Practitioner Adult Health; Admitting Provider Internal Medicine; Emergency Provider Emergency Medicine; PCP Family Medicine; Visit Provider Internal Medicine
PROC: 0DJ08ZZ Inspection of Upper Intestinal Tract, Via Natural or Artificial Opening Endoscopic (ICD-10-PCS; CPT 43235; principal; 2021-03-23 07:30)
DX: K21.9 Gastro-esophageal reflux disease without esophagitis (principal); K29.50 Unspecified chronic gastritis without bleeding; Z92.21 Personal history of antineoplastic chemotherapy; Z92.3 Personal history of irradiation; Z79.82 Long term (current) use of aspirin; I48.91 Unspecified atrial fibrillation; E20.9 Hypoparathyroidism, unspecified; E03.9 Hypothyroidism, unspecified; E78.5 Hyperlipidemia, unspecified; I25.10 Atherosclerotic heart disease of native coronary artery without angina pectoris; K44.9 Diaphragmatic hernia without obstruction or gangrene; D46.9 Myelodysplastic syndrome, unspecified; Z85.819 Personal history of malignant neoplasm of unspecified site of lip, oral cavity, and pharynx; Z85.828 Personal history of other malignant neoplasm of skin; R77.8 Other specified abnormalities of plasma proteins; D47.3 Essential (hemorrhagic) thrombocythemia; R16.2 Hepatomegaly with splenomegaly, not elsewhere classified; Z95.5 Presence of coronary angioplasty implant and graft; J63.4 Siderosis
CPT/HCPCS: 36415; 70491; 71045; 71046; 71260; 74177; 74220; 80048; 80053; 80076; 83880; 84484; 84550; 85025; 85027; 85055; 85610; 85730; 87081; 88305; 88313; 93005; 96374; 96375; 96376; 99291; A9270; C9113; G0378; J0456; J0696; J1170; J1940; J2001; J2060; J2270; J2405; J2550; J2704; J7120; Q9967

== ENCOUNTER 2022-06-18 13:30 | Outpatient (RCR) | payer BC, MEDICARE, SELFPAY ==
[2022-03-24 11:36] VITALS: PULSE 74
== END 2022-06-18 15:39 | disposition home or self-care (01) ==
LOC: ANHCPREHAB 13:30
PROVIDERS: PCP Family Medicine
DX: Z95.2 Presence of prosthetic heart valve (principal)
CPT/HCPCS: 93798

== ENCOUNTER 2023-11-10 09:39 | Outpatient (CLI) | payer BC, MEDICARE, SELFPAY ==
[2023-11-10 20:21] LABS: Prostate Specific Antigen 0.2 ng/mL (< OR = 4.0)
[2023-11-10 20:53] LABS: Creatinine Urine 42.4 mg/dL; MALB Creatinine Ratio 30.4 mg/g (0-30); Microalbumin Urine Random 12.9 mg/L (0-16.7)
== END 2023-11-10 09:40 | disposition home or self-care (01) ==
PROVIDERS: PCP Family Medicine; Visit Provider Family Medicine
DX: Z12.5 Encounter for screening for malignant neoplasm of prostate (principal); Z02.6 Encounter for examination for insurance purposes
CPT/HCPCS: 36415; 82043; 84153; G0103

== ENCOUNTER 2025-03-15 13:19 | Outpatient (CLI) | payer MEDICARE, BC, SELFPAY ==
--- NOTE | ~2025-03-15 | MR_ITS ---
EXAM/PROCEDURE: MR brain/brain stem wo con HISTORY: R41.89 - Other symptoms and signs involving cognitive fun... COMPARISON: None available. TECHNIQUE: Noncontrast brain MRI FINDINGS: Mild diffuse volume loss and scattered punctate T2 weighted hyperintense white matter foci are noted throughout both cerebral hemispheres, particularly in the periventricular white matter regions. On gradient echo sequences, there is also mild scattered punctate areas of susceptibility artifact or signal void. No mass, mass effect or hemorrhage. No acute ischemic event. Moderately extensive T2 hyperintense signal present in the right sphenoid sinus. Brainstem and cerebellum are unremarkable. IMPRESSION: 1. No acute ischemic event, mass or abnormal fluid accumulation. 2. Mild diffuse volume loss and chronic microvascular ischemic white matter changes. 3. Punctate areas of signal void on gradient sequences may be associated with punctate/hypertensive related bleeds or early/mild amyloid disease. Reviewed, dictated and finalized at location [facility] IMPRESSION: 1. No acute ischemic event, mass or abnormal fluid accumulation. 2. Mild diffuse volume loss and chronic microvascular ischemic white matter paramjit nges. 3. Punctate areas of signal void on gradient sequences may be associated with p unctate/hypertensive related bleeds or early/mild amyloid disease.
== END 2025-03-15 13:20 | disposition home or self-care (01) ==
LOC: GOSHIMG 13:20
PROVIDERS: PCP Family Medicine; Visit Provider Family Medicine
DX: R41.89 Other symptoms and signs involving cognitive functions and awareness (principal); R90.82 White matter disease, unspecified
CPT/HCPCS: 70551